=== PATIENT | female | born 1945 | race Two or more races ===

== ENCOUNTER 2023-03-20 18:18 | Inpatient (IN) | payer OTHER ==
[~2023-03-20] VITALS: Ht 157.5 cm; Wt 68.5 kg
[2023-03-20] MEDS ORDERED: DexAMETHasone SOD PHOS 10MG/1ML VIAL INJ IM ONE (18:45)
[2023-03-20] MEDS ORDERED: IPRATROPIUM BROM 0.5 MG/2.5ML INH SOL NEB ONE (18:45)
[2023-03-20] MEDS ORDERED: ALBUTEROL SULF 2.5 MG/0.5ML(0.5%) NEB SOLN NEB ONE (18:45)
[2023-03-20 20:10] LABS: Alanine Aminotransferase 12 U/L (7-40); Albumin 3.8 g/dL (3.2-4.8); Alkaline Phosphatase 106 U/L (46-116); Anion Gap 7 (5-15); Aspartate Aminotransferase 31 U/L (13-40); BUN/Creatinine Ratio 17.4 (10.0-20.0); Blood Urea Nitrogen 21 mg/dL (9-23); Calcium 8.7 mg/dL (8.7-10.4); Carbon Dioxide 26 mmol/L (20-30); Chloride 106 mmol/L (98-107); Glucose 160 mg/dL (74-106); Lipase 37 U/L (12-53); Magnesium 1.8 mg/dL (1.6-2.6); Potassium 4.3 mmol/L (3.5-5.1); Sodium 139 mmol/L (136-145)
[2023-03-20 20:11] LABS: Bilirubin, Total < 0.2 mg/dL (0.2-1.0); Total Protein 6.9 g/dL (5.7-8.2)
[2023-03-20 20:48] LABS: Basophils # (auto) 0 10 ^3/uL (0-0.2); Basophils % (auto) 0.3 % (0.0-2.0); Eosinophils # (auto) 0 10 ^3/uL (0-0.8); Hematocrit 33.8 % (36.0-46.0); Hemoglobin 10.6 g/dL (12.2-16.2); Lymphocytes # (auto) 0.8 10 ^3/uL (0.4-5.4); Mean Corpuscular Hemoglobin 29.6 pg (28.0-32.0); Mean Corpuscular Hgb Conc. 31.2 g/dL (32.0-36.0); Mean Corpuscular Volume 94.8 fL (80.0-100.0); Monocytes # (auto) 0.6 10 ^3/uL (0-1.3); Neutrophils % (auto) 85.7 % (37.0-80.0); Red Blood Cells 3.57 10^6/uL (4.0-5.20); Red Cell Distribution Width 17.3 % (11.8-14.3); White Blood Cell 10.6 10^3/uL (4.4-10.8)
[2023-03-20 21:18] LABS: COVID19 ANTIGEN SOFIA FIA NEGATIVE (NEGATIVE); Rapid Influenza A Negative (Negative); Rapid Influenza B Negative (Negative)
[2023-03-20 21:55] VITALS: PULSE 77; RESP 21; O2SAT 97
[2023-03-20 23:54] LABS: Urine Bacteria FEW /hpf (None Seen); Urine Blood 1+ /uL (Negative); Urine Clarity HAZY (Clear); Urine Color Yellow (Yellow); Urine Hyaline Cast FEW /lpf (0 - 2); Urine Mucus FEW (None Seen); Urine Protein, UAD 2+ (Negative); Urine Specific Gravity 1.028 (1.001-1.035); Urine WBC 45 /hpf (0 - 5)
[2023-03-21] VITALS (9 sets, daily range): BP systolic 119–150; BP diastolic 44–89; PULSE 70–90; RESP 16–20; TEMP 97.7–98.6; O2SAT 94–99
[2023-03-21] MEDS ORDERED: CEFTRIAXONE SODIUM 2 GM in D5W 5% 100 ML IV ONE (00:30)
[2023-03-21] MEDS ORDERED: ENOXAPARIN SOD 40 MG/0.4 ML SYRINGE SC ONE (00:30)
[2023-03-21] MEDS ORDERED: cefTRIAXone SOD 1,000 MG VL ONE (01:19)
[2023-03-21] MEDS ORDERED: hydrALAZINE HCL 10 MG TAB PO PRN (02:00)
[2023-03-21] MEDS ORDERED: ACETAMINOPHEN 325 MG TAB PO PRN (02:00)
[2023-03-21] MEDS ORDERED: NITROGLYCERIN 0.4 MG SL TAB SL PRN (02:00)
[2023-03-21] MEDS ORDERED: ONDANSETRON HCL 4 MG/2 ML VIAL IV PRN (02:00)
[2023-03-21] MEDS ORDERED: HYDROcodone-ACET 5/325MG TAB PO PRN (02:00)
[2023-03-21] MEDS ORDERED: MORPHINE SULFATE INJ 2 MG/ml SYRG IV PRN (02:00)
[2023-03-21] MEDS ORDERED: ALBUTEROL SULF 2.5 MG/0.5ML(0.5%) NEB SOLN NEB PRN (02:15)
[2023-03-21] MEDS ORDERED: IOHEXOL 350 MG/ML 100ML IJ ONE (02:29)
[2023-03-21] MEDS: ASPirin 81 mg TAB PO SCH ×2 (02:36→08:56)
[2023-03-21 04:50] LABS: Chloride 105 mmol/L (98-107); Potassium 4.2 mmol/L (3.5-5.1); Sodium 139 mmol/L (136-145)
[2023-03-21 04:51] LABS: Anion Gap 9 (5-15); Calcium 8.8 mg/dL (8.5-10.1); Carbon Dioxide 25 mmol/L (20-30)
[2023-03-21 04:56] LABS: BUN/Creatinine Ratio 18.9 (10.0-20.0); Blood Urea Nitrogen 24 mg/dL (9-23); Glucose 220 mg/dL (74-106); Triglycerides 63 mg/dL (< 150)
[2023-03-21 04:57] LABS: LDL Cholesterol 52 mg/dL (< 100)
[2023-03-21 04:58] LABS: Cholesterol 108 mg/dL (< 200); HDL Cholesterol 34 mg/dL (40-59)
[2023-03-21] MEDS ORDERED: PNEUMOCOCCAL VACC POLYS 25 MCG/0.5 ML VIAL IM ONE (07:15)
[2023-03-21] MEDS: cefTRIAXone 1GM/50ML D5W 50 ML IV SCH (08:56)
[2023-03-21] MEDS: ENOXAPARIN SOD 100 MG/1 ML SYRINGE SC SCH ×3 (09:17→23:29)
[2023-03-21] MEDS ORDERED: PRED20TA2 PO (13:54)
[2023-03-21] MEDS ORDERED: IPRA0.00 IN (13:54)
[2023-03-21] MEDS ORDERED: DOXY-447 PO (13:54)
[2023-03-21] MEDS ORDERED: LEVO50TA7 PO (21:07)
[2023-03-21] MEDS ORDERED: ATEN50TA PO (21:07)
[2023-03-21] MEDS ORDERED: CLON-853 PO (21:07)
[2023-03-21] MEDS ORDERED: ATORVASTATIN 20 MG TAB PO SCH (22:00)
[2023-03-22 00:10] VITALS: O2SAT 98
[2023-03-22 05:00] VITALS: BP 125/65; PULSE 101; RESP 16; TEMP 98.2; O2SAT 97
[2023-03-22 08:00] VITALS: BP 124/49; PULSE 79; PULSE 85; PULSE 93; RESP 18; TEMP 98.6; O2SAT 94; O2SAT 97
[2023-03-22] MEDS: cefTRIAXone 1GM/50ML D5W 50 ML IV SCH (09:27)
[2023-03-22] MEDS: ASPirin 81 mg TAB PO SCH (09:32)
[2023-03-22] MEDS: ENOXAPARIN SOD 100 MG/1 ML SYRINGE SC SCH (09:34)
[2023-03-22 12:00] VITALS: BP 157/59; PULSE 84; RESP 18; TEMP 98.2; O2SAT 100
[2023-03-22] MEDS ORDERED: GUAI100S6 PO ×2 (12:38→12:39)
[2023-03-22] MEDS ORDERED: ACET300T58 PO (12:41)
[2023-03-22] MEDS ORDERED: [UNRECOGNIZED DRUG - CODE] PO (12:41)
[2023-03-22 14:25] VITALS: BP 126/49; PULSE 79; RESP 18; TEMP 97.6; O2SAT 94
== END 2023-03-22 16:55 | disposition home or self-care (01) | DRG 180 ==
LOC: ER 18:18 → TELE 03-21 02:07 → TELE-WESTW 03-21 04:49
PROVIDERS: ADMIT Nurse Practitioner Family; ATTEND Nurse Practitioner Family
DX: C34.90 Malignant neoplasm of unspecified part of unspecified bronchus or lung (principal); I21.4 Non-ST elevation (NSTEMI) myocardial infarction; J96.00 Acute respiratory failure, unspecified whether with hypoxia or hypercapnia; N39.0 Urinary tract infection, site not specified; R04.2 Hemoptysis; Z20.822 Contact with and (suspected) exposure to COVID-19; I34.0 Nonrheumatic mitral (valve) insufficiency; Z85.118 Personal history of other malignant neoplasm of bronchus and lung; D63.0 Anemia in neoplastic disease
CPT/HCPCS: 36415; 71045; 80048; 80053; 80061; 81001; 83605; 83690; 83735; 83880; 84484; 85025; 85379; 87086; 87426; 87804; 93005; 93306; 93970; 94640; 96365; 96372; G0378; J0696; J1100; J7060